=== PATIENT | female | born 1975 | race Caucasian/White ===

== ENCOUNTER → 2020-10-22 | Outpatient (CLI) | payer OTHER ==
[~2020-10-22] MED LIST: ALEVE220 MG; HYDROCODONE-AP1 EAC6; MIRENA1 EACH; PERCOCET PO
== END ==
LOC: M.RAD 10:20
PROVIDERS: ATTEND Obstetrics & Gynecology
DX: Z12.31 Encounter for screening mammogram for malignant neoplasm of breast (principal)